=== PATIENT | male | born 1995 | race Caucasian/White ===

== ENCOUNTER 2019-10-08 07:31 | Emergency (ER) | payer MEDICAID ==
[~2019-10-08] VITALS: Ht 188 cm; Wt 119.7 kg
[2019-10-08 07:33] VITALS: BP 164/81
--- NOTE | 2019-10-08 07:41 | NUR ---
FIRST CONTACT WITH PT. PT STATED "INHALER IS ALMOST OUT. NEEDS A MED REFILL BEFORE GOING BACK TO [facility]." PT'S AOX4. RESPS EVEN AND UNLABORED.
[2019-10-08] MEDS ORDERED: ALBUTEROL/IPRATROPIUM 2.5MG/0.5MG, 3 ML NEB ONE (08:00)
[2019-10-08] MEDS ORDERED: ALBUTEROL/IPRATROPIUM 2.5MG/0.5MG, 3 ML ONE (08:06)
--- NOTE | 2019-10-08 08:12 | NUR ---
MEDICATED NOTED ON MAR
== END 2019-10-08 09:03 | disposition home or self-care (01) ==
LOC: ED 08:58
DX: J45.901 Unspecified asthma with (acute) exacerbation (principal); Z20.828 Contact with and (suspected) exposure to other viral communicable diseases; B34.9 Viral infection, unspecified; J30.2 Other seasonal allergic rhinitis
CPT/HCPCS: 36415; 87635; 94640; 99283; J7512